=== PATIENT | male | born 1945 | race Caucasian/White ===

== ENCOUNTER → 2018-11-30 13:57 | Outpatient (CLI) | payer MEDICARE, SELFPAY | PROVIDERS: Referring Provider Internal Medicine Hematology & Oncology; Visit Provider Internal Medicine Hematology & Oncology | DX: C90.00 Multiple myeloma not having achieved remission (principal) | CPT/HCPCS: 86850; 86900 ==

== ENCOUNTER → 2018-12-04 11:07 | Outpatient (CLI) | payer MEDICARE, SELFPAY ==
[2018-12-04 13:18] LABS: PSA,Total - Annual Screen 0.76 ng/mL (0.00-4.00)
== END ==
PROVIDERS: Family Provider Family Medicine; PCP Family Medicine; Referring Provider Urology; Visit Provider Urology
DX: Z12.5 Encounter for screening for malignant neoplasm of prostate (principal)
CPT/HCPCS: 36415; 84153; G0103

== ENCOUNTER → 2020-02-11 | Outpatient (CLI) | payer MEDICARE, SELFPAY ==
[2020-02-11 15:48] LABS: PSA,Total - Annual Screen 0.41 ng/mL (0.00-4.00)
== END | disposition home or self-care (01) ==
LOC: LAB 14:58
PROVIDERS: PCP Family Medicine; Visit Provider Urology
DX: Z12.5 Encounter for screening for malignant neoplasm of prostate (principal)
CPT/HCPCS: 36415; 84153; G0103

== ENCOUNTER → 2021-02-19 14:54 | Outpatient (CLI) | payer MEDICARE, SELFPAY ==
[2021-02-19 17:27] LABS: PSA,Total - Annual Screen 0.54 ng/mL (0.00-4.00)
== END ==
PROVIDERS: PCP Family Medicine; Visit Provider Urology
DX: Z12.5 Encounter for screening for malignant neoplasm of prostate (principal)
CPT/HCPCS: 36415; 84153; G0103